=== PATIENT | male | born 1975 | race Hispanic/Latino ===

== ENCOUNTER 2023-01-18 08:10 | Outpatient (RCR) | payer BC | END 2023-02-05 | LOC: PT 08:10 | PROVIDERS: ATTEND Student in an Organized Health Care Education/Training Program | DX: M51.86 Other intervertebral disc disorders, lumbar region (principal); G57.00 Lesion of sciatic nerve, unspecified lower limb ==

== ENCOUNTER 2023-02-20 16:55 | Outpatient (RCR) | payer BC | END 2023-03-07 | LOC: PT 16:55 | PROVIDERS: ATTEND Student in an Organized Health Care Education/Training Program | DX: M51.86 Other intervertebral disc disorders, lumbar region (principal); G57.00 Lesion of sciatic nerve, unspecified lower limb ==